=== PATIENT | male | born 1965 | race Hispanic/Latino ===

== ENCOUNTER 2020-11-04 10:54 | Inpatient (IN) | payer BC ==
[~2020-11-04] VITALS: Ht 167.6 cm; Wt 100.3 kg
[2020-11-04 11:07] VITALS: BP 106/53
[2020-11-04] MEDS ORDERED: ALBUTEROL INHALER 90MCG/INH IH PRN ×2 (12:30→15:30)
[2020-11-04] MEDS ORDERED: ACETAMINOPHEN WITH CODEINE 1 TAB TAB PO ONE ×2 (12:30→17:00)
[2020-11-04 12:53] LABS: HEMATOCRIT 46.5 % (42-54); MEAN CORPUSCULAR HEMOGLOBIN 28.4 pg (27.0-33.0); MEAN CORPUSCULAR HGB CONC 32.5 g/dL (32.0-36.0); MEAN CORPUSCULAR VOLUME 87.4 fL (79-99); PLATELET COUNT (AUTO) 138 K/uL (130-400); RED BLOOD CELL COUNT(AUTO) 5.32 MIL/uL (4.50-6.20); RED CELL DISTRIBUTION WIDTH 14.1 % (11.0-15.5); WHITE BLOOD COUNT (AUTO) 7.3 K/uL (4.8-10.8)
[2020-11-04 12:57] LABS: ABG BASE EXCESS -1.7 mmol/L (-2.0-3.0); ABG OXYGEN SATURATION 93.3 % (95.0-99.0); ABG PCO2 35 mmHg (35-48)
[2020-11-04 13:04] VITALS: BP 99/60
[2020-11-04 13:04] LABS: CREATININE 1.2 mg/dL (0.5-1.5); POTASSIUM 4.6 mmol/L (3.5-5.1)
[2020-11-04 13:08] LABS: ALBUMIN 3.5 g/dL (3.5-5.0); BILIRUBIN,TOTAL 0.5 mg/dL (0.2-1.0); CRP QUANTITATIVE 144.4 mg/L (0.00-9.0)
[2020-11-04 13:17] LABS: B-TYPE NATRIURETIC PEPTIDE 5 pg/mL (0-100)
[2020-11-04] MEDS ORDERED: OSELTAMIVIR PHOSPHATE 75 MG CAP PO SCH ×2 (13:30→21:00)
[2020-11-04 13:47] LABS: BAND NEUTROPHILS % (MANUAL) 3 % (0-2); BASOPHILS % (MANUAL) 1 % (0-2); EOSINOPHILS % (MANUAL) 1 % (1-6); LYMPHOCYTES % (MANUAL) 14 % (22-44); MAN.DIFF COMMENT-IMPRESSION MANUAL DIFFERENTIAL; MONOCYTES % (MANUAL) 2 % (2-9); PLATELET MORPHOLOGY COMMENT ADEQUATE; SEGMENTED NEUTROPHILS % 79 % (40-70)
[2020-11-04 14:27] LABS: APPEARANCE,URINE Clear (CLEAR); BILIRUBIN,URINE Small (NEGATIVE); COLOR,URINE Dark Yellow (YELLOW); GLUCOSE, URINE (UA) Negative (NEGATIVE); KETONES,URINE Trace mg/dL (NEGATIVE); LEUKOCYTE ESTERASE ,URINE Trace (NEGATIVE); NITRATE,URINE Negative (NEGATIVE); OCCULT BLOOD,URINE Negative (NEGATIVE); PH,URINE 5.5 (5.0-8.0); PROTEIN,URINE POS 2+ mg/dL (NEGATIVE)
[2020-11-04 14:38] LABS: BACTERIA,URINE Few /HPF (None Seen); MUCUS,URINE Moderate LPF (None Seen); SQUAMOUS EPITHELIAL CELL,UR Few /HPF (0-2)
[2020-11-04 15:05] VITALS: BP 110/71
[2020-11-04] MEDS ORDERED: ACETAMINOPHEN 650 MG SUPPOSITORY RC PRN (15:30)
[2020-11-04] MEDS ORDERED: ONDANSETRON 4MG INJ IVP PRN ×2 (15:30)
[2020-11-04] MEDS: SOLU-MEDROL 40MG VIAL IVP SCH (15:30)
[2020-11-04] MEDS ORDERED: ACETAMINOPHEN 325 MG TAB PO PRN ×2 (15:30)
[2020-11-04] MEDS ORDERED: SOLU-MEDROL 125MG VIAL IVP ONE (16:00)
[2020-11-04] MEDS ORDERED: REMDESIVIR (EUA) 520 200 MG in 0.9% NACL 250ML 250 ML IV ONE (16:00)
[2020-11-04] MEDS ORDERED: COMPOUND IV REFRIGERATED 1 EACH IVSOLN MISC PRN (16:00)
[2020-11-04] MEDS ORDERED: PANTOPRAZOLE 40 MG TAB DR PO SCH (16:30)
[2020-11-04] MEDS: CEFTRIAXONE 1G VIAL IVP SCH (16:48)
[2020-11-04] MEDS: ENOXAPARIN SODIUM 40 MG/0.4 ML SYRINGE SQ SCH (16:49)
[2020-11-04 17:30] VITALS: BP 103/55
[2020-11-04] MEDS ORDERED: LISI10TA24 PO (17:30)
[2020-11-04 19:58] VITALS: BP 100/56
[2020-11-04] MEDS: DOXYCYCLINE 100MG+NS 250ML IV SCH (21:50)
[2020-11-04] MEDS: OSELTAMIVIR PHOSPHATE 75 MG CAP PO SCH (21:51)
[2020-11-04] MEDS: 0.9% NACL 250ML 250 ML IV SCH (21:51)
[2020-11-05] VITALS (9 sets, daily range): BP systolic 99–125; BP diastolic 56–88
[2020-11-05] MEDS: REMDESIVIR LABS MISC SCH (06:00)
[2020-11-05 07:08] LABS: BASOPHILS % (AUTO) 0.1 % (0.0-5.0); EOSINOPHILS % (AUTO) 1.6 % (0.0-8.0); HEMATOCRIT 44.5 % (42-54); LYMPHOCYTES % (AUTO) 13.9 % (21.0-51.0); MEAN CORPUSCULAR HEMOGLOBIN 28.3 pg (27.0-33.0); MEAN CORPUSCULAR HGB CONC 32.6 g/dL (32.0-36.0); MEAN CORPUSCULAR VOLUME 86.9 fL (79-99); MONOCYTES % (AUTO) 4.2 % (3.0-13.0); NEUTROPHILS % (AUTO) 79.9 % (40.0-77.0); PLATELET COUNT (AUTO) 149 K/uL (130-400); RED BLOOD CELL COUNT(AUTO) 5.12 MIL/uL (4.50-6.20); RED CELL DISTRIBUTION WIDTH 13.9 % (11.0-15.5); WHITE BLOOD COUNT (AUTO) 7.7 K/uL (4.8-10.8)
[2020-11-05 07:22] LABS: HEMOGLOBIN A1C 6.3 % (4.0-6.0)
[2020-11-05 07:23] LABS: BILIRUBIN,TOTAL 0.3 mg/dL (0.2-1.0); MAGNESIUM 2.1 mg/dL (1.80-2.40); PHOSPHORUS 3.6 mg/dL (2.5-4.9); POTASSIUM 4.3 mmol/L (3.5-5.1); TOTAL PROTEIN, SERUM 7.5 g/dL (6.0-8.3)
[2020-11-05 07:34] LABS: CRP QUANTITATIVE 179.3 mg/L (0.00-9.0)
[2020-11-05] MEDS ORDERED: DEXAMETHASONE SOD PHOSPHATE 4 MG/ML 1ML VIAL IVP SCH (09:00)
[2020-11-05] MEDS: 0.9% NACL 250ML 250 ML IV SCH ×2 (10:33→21:36)
[2020-11-05] MEDS: DOXYCYCLINE 100MG+NS 250ML IV SCH ×2 (10:33→21:36)
[2020-11-05] MEDS: OSELTAMIVIR PHOSPHATE 75 MG CAP PO SCH ×2 (10:33→21:36)
[2020-11-05] MEDS: PANTOPRAZOLE 40 MG TAB DR PO SCH (10:33)
[2020-11-05] MEDS ORDERED: 0.9%NACL 50ML 50 ML IV ONE (15:47)
[2020-11-05] MEDS: CEFTRIAXONE 1G VIAL IVP SCH (15:56)
[2020-11-05] MEDS: SOLU-MEDROL 40MG VIAL IVP SCH (15:56)
[2020-11-05] MEDS: REMDESIVIR (EUA) 520 100 MG in 0.9% NACL 250ML 250 ML IV SCH (16:42)
[2020-11-05] MEDS: ENOXAPARIN SODIUM 40 MG/0.4 ML SYRINGE SQ SCH (17:51)
[2020-11-05 19:00] LABS: INR 1.06 (0.85-1.15); PROTHROMBIN TIME 11.5 SEC (9.6-11.6)
[2020-11-06] VITALS (7 sets, daily range): BP systolic 111–127; BP diastolic 57–77
[2020-11-06 06:59] LABS: BASOPHILS % (AUTO) 0.1 % (0.0-5.0); EOSINOPHILS % (AUTO) 1.8 % (0.0-8.0); LYMPHOCYTES % (AUTO) 13.1 % (21.0-51.0); MEAN CORPUSCULAR HEMOGLOBIN 28.3 pg (27.0-33.0); MEAN CORPUSCULAR HGB CONC 32.3 g/dL (32.0-36.0); MEAN CORPUSCULAR VOLUME 87.4 fL (79-99); MONOCYTES % (AUTO) 7.2 % (3.0-13.0); NEUTROPHILS % (AUTO) 77.4 % (40.0-77.0); PLATELET COUNT (AUTO) 161 K/uL (130-400); RED BLOOD CELL COUNT(AUTO) 4.92 MIL/uL (4.50-6.20); RED CELL DISTRIBUTION WIDTH 13.9 % (11.0-15.5); WHITE BLOOD COUNT (AUTO) 8.5 K/uL (4.8-10.8)
[2020-11-06] MEDS: REMDESIVIR LABS MISC SCH (07:00)
[2020-11-06 07:22] LABS: ALBUMIN 2.8 g/dL (3.5-5.0); BILIRUBIN,TOTAL 0.3 mg/dL (0.2-1.0); CRP QUANTITATIVE 106.4 mg/L (0.00-9.0); POTASSIUM 4.3 mmol/L (3.5-5.1); TOTAL PROTEIN, SERUM 6.8 g/dL (6.0-8.3)
[2020-11-06] MEDS: PANTOPRAZOLE 40 MG TAB DR PO SCH (08:41)
[2020-11-06] MEDS: 0.9% NACL 250ML 250 ML IV SCH ×2 (08:41→20:42)
[2020-11-06] MEDS: OSELTAMIVIR PHOSPHATE 75 MG CAP PO SCH ×2 (08:41→20:42)
[2020-11-06] MEDS: DOXYCYCLINE 100MG+NS 250ML IV SCH ×2 (08:41→20:42)
[2020-11-06] MEDS: SOLU-MEDROL 40MG VIAL IVP SCH (15:11)
[2020-11-06] MEDS: ENOXAPARIN SODIUM 40 MG/0.4 ML SYRINGE SQ SCH (15:11)
[2020-11-06] MEDS: CEFTRIAXONE 1G VIAL IVP SCH (15:11)
[2020-11-06] MEDS: REMDESIVIR (EUA) 520 100 MG in 0.9% NACL 250ML 250 ML IV SCH (15:12)
[2020-11-07 03:55] VITALS: BP 119/68
[2020-11-07 05:44] LABS: HEMATOCRIT 40.9 % (42-54); LYMPHOCYTES % (AUTO) 19.7 % (21.0-51.0); MEAN CORPUSCULAR HEMOGLOBIN 27.8 pg (27.0-33.0); MEAN CORPUSCULAR HGB CONC 31.8 g/dL (32.0-36.0); MEAN CORPUSCULAR VOLUME 87.6 fL (79-99); MONOCYTES % (AUTO) 9.2 % (3.0-13.0); NEUTROPHILS % (AUTO) 70.3 % (40.0-77.0); PLATELET COUNT (AUTO) 180 K/uL (130-400); RED BLOOD CELL COUNT(AUTO) 4.67 MIL/uL (4.50-6.20); RED CELL DISTRIBUTION WIDTH 13.9 % (11.0-15.5); WHITE BLOOD COUNT (AUTO) 5.1 K/uL (4.8-10.8)
[2020-11-07 05:56] LABS: ALBUMIN 2.6 g/dL (3.5-5.0); BILIRUBIN,TOTAL 0.3 mg/dL (0.2-1.0); CREATININE 0.9 mg/dL (0.5-1.5); CRP QUANTITATIVE 61.8 mg/L (0.00-9.0); POTASSIUM 4.5 mmol/L (3.5-5.1); TOTAL PROTEIN, SERUM 6.5 g/dL (6.0-8.3)
[2020-11-07] MEDS: REMDESIVIR LABS MISC SCH (06:09)
[2020-11-07 08:00] VITALS: BP 113/74
[2020-11-07] MEDS: DOXYCYCLINE 100MG+NS 250ML IV SCH ×2 (10:25→20:39)
[2020-11-07] MEDS: PANTOPRAZOLE 40 MG TAB DR PO SCH (10:26)
[2020-11-07] MEDS: OSELTAMIVIR PHOSPHATE 75 MG CAP PO SCH ×2 (10:26→20:39)
[2020-11-07] MEDS: 0.9% NACL 250ML 250 ML IV SCH ×2 (10:26→20:40)
[2020-11-07 12:00] VITALS: BP 108/60
[2020-11-07 16:00] VITALS: BP 104/41
[2020-11-07] MEDS: CEFTRIAXONE 1G VIAL IVP SCH (16:18)
[2020-11-07] MEDS: REMDESIVIR (EUA) 520 100 MG in 0.9% NACL 250ML 250 ML IV SCH (16:18)
[2020-11-07] MEDS: SOLU-MEDROL 40MG VIAL IVP SCH (16:19)
[2020-11-07] MEDS: ENOXAPARIN SODIUM 40 MG/0.4 ML SYRINGE SQ SCH (16:29)
[2020-11-07 20:45] VITALS: BP 124/72
[2020-11-07 23:57] VITALS: BP 109/68
[2020-11-08] MEDS: SOLU-MEDROL 40MG VIAL IVP SCH ×3 (00:19→19:17)
[2020-11-08 04:19] LABS: LYMPHOCYTES % (AUTO) 14.9 % (21.0-51.0); MEAN CORPUSCULAR HEMOGLOBIN 28.5 pg (27.0-33.0); MEAN CORPUSCULAR HGB CONC 32.9 g/dL (32.0-36.0); MEAN CORPUSCULAR VOLUME 86.6 fL (79-99); MONOCYTES % (AUTO) 6.6 % (3.0-13.0); NEUTROPHILS % (AUTO) 77.6 % (40.0-77.0); PLATELET COUNT (AUTO) 202 K/uL (130-400); RED BLOOD CELL COUNT(AUTO) 4.85 MIL/uL (4.50-6.20); RED CELL DISTRIBUTION WIDTH 13.7 % (11.0-15.5); WHITE BLOOD COUNT (AUTO) 5.6 K/uL (4.8-10.8)
[2020-11-08 04:23] VITALS: BP 115/66
[2020-11-08 04:40] LABS: ALBUMIN 2.7 g/dL (3.5-5.0); BILIRUBIN,TOTAL 0.3 mg/dL (0.2-1.0); POTASSIUM 4.5 mmol/L (3.5-5.1); TOTAL PROTEIN, SERUM 6.7 g/dL (6.0-8.3)
[2020-11-08] MEDS: REMDESIVIR LABS MISC SCH (05:46)
[2020-11-08 08:00] VITALS: BP 152/107
[2020-11-08] MEDS: PANTOPRAZOLE 40 MG TAB DR PO SCH (08:48)
[2020-11-08] MEDS: OSELTAMIVIR PHOSPHATE 75 MG CAP PO SCH ×2 (08:48→19:17)
[2020-11-08] MEDS: DOXYCYCLINE 100MG+NS 250ML IV SCH ×2 (10:27→19:18)
[2020-11-08] MEDS: 0.9% NACL 250ML 250 ML IV SCH ×2 (10:28→19:18)
[2020-11-08 11:00] VITALS: BP 123/86
[2020-11-08] MEDS: CEFTRIAXONE 1G VIAL IVP SCH (15:12)
[2020-11-08] MEDS: REMDESIVIR (EUA) 520 100 MG in 0.9% NACL 250ML 250 ML IV SCH (15:12)
[2020-11-08] MEDS: ENOXAPARIN SODIUM 40 MG/0.4 ML SYRINGE SQ SCH (15:12)
[2020-11-08 16:00] VITALS: BP 125/68
[2020-11-08] MEDS ORDERED: ASPI-1005 PO (18:33)
[2020-11-08] MEDS ORDERED: DEXA6TAB PO (18:33)
[2020-11-08 20:01] VITALS: BP 134/68
[2020-11-08 23:30] VITALS: BP 137/79
[2020-11-09 04:34] VITALS: BP 125/75
[2020-11-09 05:31] LABS: CREATININE 0.9 mg/dL (0.5-1.5); CRP QUANTITATIVE 34.8 mg/L (0.00-9.0); POTASSIUM 4.2 mmol/L (3.5-5.1)
[2020-11-09 08:46] VITALS: BP 142/87
[2020-11-09] MEDS: PANTOPRAZOLE 40 MG TAB DR PO SCH (10:15)
[2020-11-09] MEDS: OSELTAMIVIR PHOSPHATE 75 MG CAP PO SCH (10:15)
[2020-11-09] MEDS: 0.9% NACL 250ML 250 ML IV SCH (10:15)
[2020-11-09] MEDS: DOXYCYCLINE 100MG+NS 250ML IV SCH (10:15)
[2020-11-09] MEDS: SOLU-MEDROL 40MG VIAL IVP SCH (10:15)
[2020-11-09 12:17] VITALS: BP 134/54
[2020-11-09] MEDS: CEFTRIAXONE 1G VIAL IVP SCH (15:24)
[2020-11-09] MEDS: ENOXAPARIN SODIUM 40 MG/0.4 ML SYRINGE SQ SCH (15:27)
[2020-11-09 16:11] VITALS: BP 112/57
== END 2020-11-09 17:30 | disposition home or self-care (01) | DRG 177 ==
LOC: EDH 10:54 → EDHIP 14:10 → 4AH 11-06 02:44
PROVIDERS: ADMIT Internal Medicine Infectious Disease; ATTEND Internal Medicine Infectious Disease
PROC: XW033E5 Introduction of Remdesivir Anti-infective into Peripheral Vein, Percutaneous Approach, New Technology Group 5 (ICD-10-PCS; principal; 2020-11-04)
DX: U07.1 COVID-19 (principal); J10.08 Influenza due to other identified influenza virus with other specified pneumonia; J96.01 Acute respiratory failure with hypoxia; J12.9 Viral pneumonia, unspecified; Z68.35 Body mass index [BMI] 35.0-35.9, adult; E66.9 Obesity, unspecified; Z87.891 Personal history of nicotine dependence; L80 Vitiligo; J45.909 Unspecified asthma, uncomplicated; I10 Essential (primary) hypertension; R53.81 Other malaise
CPT/HCPCS: 36415; 36600; 71045; 71250; 80048; 80053; 81001; 82728; 82803; 83036; 83605; 83615; 83735; 83880; 84100; 84145; 84484; 85025; 85378; 85610; 86140; 87040; 87426; 87804; 87880; 93005; 94760; A4606; G0378; J0696; J1650; J2920; J2930; J3490; J7050